=== PATIENT | female | born 1975 | race Caucasian/White ===

== ENCOUNTER 2020-08-18 00:09 | Outpatient (CLI) | payer OTHER, SELFPAY ==
[2020-08-18 19:47] LABS: SARS-CoV-2 RNA PCR Negative
== END 2020-08-18 00:10 | disposition home or self-care (01) ==
LOC: ANHCOVIDDT 00:09
PROVIDERS: PCP Family Medicine; Visit Provider Otolaryngology
DX: Z01.818 Encounter for other preprocedural examination (principal); Z20.828 Contact with and (suspected) exposure to other viral communicable diseases
CPT/HCPCS: 87635; C9803; U0003

== ENCOUNTER 2020-08-21 01:20 | Day surgery (SDC) | payer OTHER, SELFPAY ==
[2020-08-11 10:10] VITALS: BMI 32.5
--- NOTE | 2020-08-20 08:24 | PM.IMHP ---
H&P: HPI History of Present Illness Date/Time: 08/20/20 08:24 Chief complaint: Nasopharyngeal Lesion/Chronic Otitis Media Narrative: 45-year-old female who presents with a history of bilateral eustachian tube dysfunction. Nasopharyngoscopy has never been performed. Status post BMT 1.5 years ago. Left tube is extruded. The patient presents with left aural fullness pain and disequilibrium. Patient is unsure on the status of the right tube. Patient also complains of nasal congestion rhinorrhea postnasal drip facial pain and pressure which is worse during her allergy seasons. Which happens to be now. Review of Systems Constitutional: Constitutional: Denies fatigue, Denies fever(s) and Denies lethargy Eyes: Eyes: Denies blurry vision and Denies change in vision ENT: Reports as per HPI Cardiovascular: Cardiovascular: Denies chest pain Respiratory: Respiratory: Denies cough Endocrine: Endocrine: Denies fatigue Hematologic/Lymphatic: Hematologic/Lymphatic: Denies easy bleeding, Denies easy bruising and Denies lymphadenopathy Allergic/Immunologic: Allergic/Immunologic: Denies seasonal rhinorrhea [facility] Social History Social History Smoking status: Former smoker Tobacco type: cigarettes Additional smoking assessment comments: 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 Spiritual care concerns: No Meds Home Medications and Allergies Home Medications Medication Instructions Recorded Confirmed Type fluticasone propionate 50 1 spray INTRANASAL BID #15.8 ml 07/27/20 08/11/20 Rx mcg/actuation nasal spray,suspension montelukast 10 mg tablet 10 mg PO DAILY 07/27/20 08/11/20 History paroxetine HCl 20 mg tablet 20 mg PO DAILY 07/27/20 08/11/20 History adpqlpjh-zicbfmazy-qlpwjojfj 3.5 4 drp OTIC (EAR) Q8H #10 ml 08/03/20 08/11/20 Rx mg/mL-10,000 unit/mL-1 % ear solution Allergies Allergy/AdvReac Type Severity Reaction Status Date / Time morphine AdvReac Unknown N&V Verified 08/11/20 10:11 Exam Const: General: cooperative, healthy appearing, comfortable, well developed and alert HENMT: Head: normal to inspection, normocephalic and atraumatic Ears: hearing grossly normal bilaterally, external ears normal, TM's normal bilaterally and EAC's normal General nose exam: Normal external nose present, Normal nares present, No nasal polyps present, Normal nasal mucous membranes and turbinates present and Normal septum present Face and sinus: normal facial exam Mouth: Yes Normal oral and palatal mucosa present, Yes lip normal, Yes tongue normal, Yes oropharynx normal and Yes moist mucous membranes Teeth and gingiva: dentition normal and gingiva normal Throat: posterior oropharynx normal, tonsils normal and uvula midline Eyes: General: appearance normal, both eyes and all related structures Periorbital: periorbital findings normal Eyelids: eyelids normal Conjunctivae: conjunctivae normal Sclera: sclerae normal Neck: Neck: normal visual inspection, full ROM and no lymphadenopathy Thyroid: thyroid normal Lymphatic: no lymphadenopathy noted Resp: Effort & Inspection: normal respiratory effort and able to speak in complete sentences Cardio: Jugular venous distension: no JVD Neuro: Cranial nerves: Yes CN's II-XII intact bilaterally Assessment and Plan Assessment and plan (1) ETD (eustachian tube dysfunction): Code(s): H69.80 - Other specified disorders of Eustachian tube, unspecified ear Status: Acute Assessment and Plan: Plan is for the OR for a bilateral myringotomy with tube insertion including removal of the right myringotomy tube. We will put T tubes in. Also scheduled an endoscopic marsupialization reverse biopsy of the nasopharyngeal lesion. Lastly bilateral endoscopic maxillary antrostomies and anterior ethmoidectomies. The risks of the aforementioned procedures were discussed in great detail and the patient voiced voiced understanding of those risks. The risks
[2020-08-21] VITALS (8 sets, daily range): BP systolic 136–157; BP diastolic 73–105; PULSE 49–87; RESP 14–23; TEMP 36; O2SAT 95–100
[2020-08-21] MEDS: ACETAMINOPHEN 500 MG TABLET 1000 MG PO (06:40)
[2020-08-21] MEDS: LACTATED RINGERS 1,000 ML 30 ML IV CONT ×2 (06:45→10:13)
--- NOTE | 2020-08-21 07:09 | WPDHPUPDATE1 ---
History and Physical Update Update Date/Time: 08/21/20 07:09 History and Physical has been reviewed, including an updated exam of the patient. There are NO changes in the patient's condition. Risks, benefits, and alternatives have been discussed and questions answered. Patient agrees to proceed with procedure.
--- NOTE | 2020-08-21 07:24 | WPDANESEPPF ---
Anes - Initial Pre Proc Eval Procedure: Operation Date: 08/21/20 07:45 Proposed Procedures p Removal Right Myringotomy Tube - Phu Huang MD s Bilateral Myringotomy, Insertion Of Tubes - Phu Huang MD s Endoscopic Marsupialization Biopsy Of The Nasopharyngeal Lesion - Phu Huang MD Date/Time: 08/21/20 07:24 Surgeon: Phu Huang MD Pre Op Diagnosis: Nasopharyngeal Lesion/Chronic Otitis Media Patient Data Age: 45 Gender: F Height: 5 ft 9 in Weight: 91.2 kg Allergies Allergy/AdvReac Type Severity Reaction Status Date / Time morphine AdvReac Unknown N&V Verified 08/21/20 07:05 Home Medications Medication Instructions Recorded Confirmed Type fluticasone propionate 50 1 spray INTRANASAL BID #15.8 ml 07/27/20 08/21/20 Rx mcg/actuation nasal spray,suspension montelukast 10 mg tablet 10 mg PO DAILY 07/27/20 08/21/20 History paroxetine HCl 20 mg tablet 20 mg PO DAILY 07/27/20 08/21/20 History nhgfwnif-szhsprqvw-yusccymvz 3.5 4 drp OTIC (EAR) Q8H #10 ml 08/03/20 08/21/20 Rx mg/mL-10,000 unit/mL-1 % ear solution Patient hx anesthesia problems: none Family hx anesthesia problems: none PMFSH Social History Social History Smoking status: Former smoker Tobacco type: cigarettes 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 Questions were solicited and answers provided to the satisfaction of the patient/family/POA.
[2020-08-21] MEDS: OXYMETAZOLINE HCL 0.05% NAS 15 ML BTL (*BKC) 1 SPRAY NASAL (08:13)
[2020-08-21] MEDS: CIPROFLOXACIN HCL 0.3% OP SOLN 2.5 ML BTL 4 DROP EACH EAR (08:13)
--- NOTE | 2020-08-21 09:51 | P.OP_ITS ---
Procedure Note - Detailed Date of procedure: 08/21/20 Pre-op diagnosis: Nasopharyngeal Lesion/Chronic Otitis Media CRS Post-op diagnosis: same Procedure performed: 1. Marsupialize a peterson/biopsy endoscopic of nasopharyngeal cyst 2. Bilateral myringotomy with T-tube insertion 3. Bilateral endoscopic maxillary antrostomies 4. Bilateral endoscopic anterior ethmoidectomies Removal of right-sided PE tube Description of procedure: the patient was correctly identified and consent was verified in the preoperative holding area. The patient was then brought to the operating room and a time-out was performed. The candice microscope was brought onto the field and the right tympanic membrane was brought into view. a collar button myringotomy tube was located in the anterior inferior quadrant. This was removed with a pick And alligator forceps. A T-tube was then placed. The left TM was then brought into view and incision was made in the anterior- inferior quadrant and a T-tube was placed. Antibiotic drops were placed bilaterally. The patient was then prepped and draped for the endoscopic portion of the procedure Afrin pledgets were placed and left for 5 minutes. The nasopharyngeal cyst was then visualized and widely marsupialized with a Janet forceps. Thick mucopurulent material was removed. This was sent for biopsy. The bilateral middle meati were then packed with Afrin pledgets a ball-tip probe was utilized to outfracture anteriorly the left uncinate process and a backbiter to the right was then utilized to perform an onset uncinectomy. Microdebrider as well as Kerrison forceps were then utilized to perform maxillary antrostomies as well as anterior ethmoidectomies. Hemostasis was controlled using the intermittent packing with Afrin-soaked pledgets. At the end of the procedure hemostasis was noted to be tolerable. The patient was then turned over to Anesthesiology. Prior to extubation Gelfoam packing was placed in the bilateral middle meati. I performed all dictated portions of the procedure Anesthesia: GLMA Surgeon: Phu Huang MD Estimated blood loss (mL): 250 Packing: No Complications: No immediate complications Condition: stable Disposition: PACU
[2020-08-21] MEDS: fentaNYL CITRATE INJ (*CRX) 100 MCG/2 ML VIAL 25 MCG IV PUSH ×3 (09:52→10:24)
--- NOTE | 2020-08-21 09:58 | SUR.PHASEI ---
0934; PT INTO PACU PER STRETCHER. PT GROGGY. TRYING TO RUB FACE AND REMOVE O2 MASK. PT ORIENTED TO SURGERY/PACU. PT DENIES PAIN 0950; PT C/O HEADACHE. PT CALM NOW. FENTANYL GIVEN PRN.
--- NOTE | 2020-08-21 10:40 | SUR.PHASEI ---
PT AWAKE, STATES HEADACHE IMPROVED. READY TO MOVE TO [facility].
[2020-08-21] MEDS: oxyCODONE HCL (*CRX) 5 MG TAB IR PO (11:02)
== END 2020-08-21 12:00 | disposition home or self-care (01) ==
PROVIDERS: PCP Family Medicine; Visit Provider Otolaryngology
PROC: (CPT 69424; principal; 2020-08-21 07:45)
PROC: (CPT 69436; 2020-08-21 07:45)
PROC: (CPT 69436; 2020-08-21 07:45)
DX: J34.89 Other specified disorders of nose and nasal sinuses (principal); J32.9 Chronic sinusitis, unspecified; H66.93 Otitis media, unspecified, bilateral; H69.80 Other specified disorders of Eustachian tube, unspecified ear; J39.2 Other diseases of pharynx; Z87.891 Personal history of nicotine dependence
CPT/HCPCS: 69436; 31255; 31256; 88305; A9270; J0330; J1100; J2250; J2405; J2704; J3010; J7120